=== PATIENT | female | born 1980 | race American Indian/Alaskan Native ===

== ENCOUNTER 2021-02-04 14:49 | Emergency (ER) | payer OTHER ==
[2021-02-04 15:06] VITALS: BP 126/70
[2021-02-04 15:25] LABS: Basophils # (Auto) 0.1 K/mm3 (0.0-0.1); Basophils % (Auto) 0.9 % (0.0-1.8); Eosinophils # (Auto) 0.3 K/mm3 (0.0-0.4); Eosinophils % (Auto) 4.1 % (0.0-4.3); Hematocrit 38.2 % (30.3-42.9); Hemoglobin 12.7 gm/dl (10.1-14.3); Lymphocytes # (Auto) 2.3 K/mm3 (1.2-5.4); Lymphocytes % (Auto) 31.7 % (13.4-35.0); Mean Corpuscular HGB Conc 33 % (30-34); Mean Corpuscular Volume 84 fl (79-97); Monocytes # (Auto) 0.6 K/mm3 (0.0-0.8); Platelet Count 239 K/mm3 (140-440); Red Blood Count 4.56 M/mm3 (3.65-5.03)
[2021-02-04 15:52] LABS: Alanine Aminotransferase 14 units/L (7-56); BUN/Creatinine Ratio 8; Blood Urea Nitrogen 6 mg/dL (7-17); Calcium 8.8 mg/dL (8.4-10.2); Hemolysis Index 24
[2021-02-04 15:56] LABS: Bacteria,Urine 2+ /HPF (Negative); Bilirubin,Urine NEG (Negative); Blood,Urine SM (Negative); Color,Urine Yellow (Yellow); Mucus,Urine FEW /HPF; Protein,Urine <15 mg/dL mg/dL (Negative); Urobilinogen,Urine < 2.0 mg/dL (<2.0)
--- NOTE | 2021-02-04 18:04 | Emergency Department Report ---
ED HPI - General Chief complaint: Vaginal Bleeding Stated complaint: CRAMPING/BLEEDING/ 9 WKS Time Seen by Provider: 02/04/21 15:33 Source: patient Mode of arrival: Ambulatory Limitations: No Limitations - History of Present Illness Initial comments: Patient is a 40-year-old female presents emergency room with complaints of vaginal spotting that began today. She states that the spotting is light. She denies any heavy bleeding or passing clots. She states that she also has some mild lower abdominal cramping. Patient reports that she is currently approximately 9 weeks . She states that she has a [employer] in [place]. She states that she has not yet had an ultrasound. Patient reports that she has an appointment with her [employer] next week. She denies any fever, nausea, vomiting, diarrhea, abnormal vaginal discharge, urinary symptoms. Last menstrual cycle 11/29/2020. /P: 3/A: 4. No past medical history. No sujey rgies medications. - Related Data Allergies Allergy/AdvReac Type Severity Reaction Status Date / Time No Known Allergies Allergy Verified 02/04/21 18:31 ED Review of Systems ROS: Stated complaint: CRAMPING/BLEEDING/ 9 WKS Other details as noted in HPI Comment: All other systems reviewed and negative ED Past Medical Hx - Past Medical History Hx Arthritis: Yes Additional medical history: fibromyalgia - Surgical History Additional Surgical History: x3 - Social History Smoking Status: Never Smoker ED Physical Exam - General Limitations: No Limitations General appearance: alert, in no apparent distress - Head Head exam: Present: atraumatic, normocephalic - Eye Eye exam: Present: normal appearance - ENT ENT exam: Present: mucous membranes moist - Respiratory Respiratory exam: Present: normal lung sounds bilaterally. Absent: respiratory distress, wheezes, rales, rhonchi, stridor, chest wall tenderness, accessory muscle use, decreased breath sounds, prolonged expiratory - Cardiovascular Cardiovascular Exam: Present: regular rate, normal rhythm, normal heart sounds. Absent: systolic murmur, diastolic murmur, rubs, gallop - Neurological Exam Neurological exam: Present: alert, oriented X3 - Psychiatric Psychiatric exam: Present: normal affect, normal mood - Skin Skin exam: Present: warm, dry, intact ED Course Vital Signs 02/04/21 14:55 Temperature 98.5 F Pulse Rate 89 Respiratory 16 Rate Blood Pressure 126/70 O2 Sat by Pulse 99 Oximetry ED Medical Decision Making - Lab Data Result diagrams: 02/04/21 15:13 02/04/21 15:13 Lab Results 02/04/21 02/04/21 02/04/21 Range/Units 15:13 15:13 15:13 WBC 7.4 (4.5-11.0) K/mm3 RBC 4.56 (3.65-5.03) M/mm3 Hgb 12.7 (10.1-14.3) gm/dl Hct 38.2 (30.3-42.9) % MCV 84 (79-97) fl MCH 28 (28-32) pg MCHC 33 (30-34) % RDW 14.0 (13.2-15.2) % Plt Count 239 (140-440) K/mm3 Lymph % (Auto) 31.7 (13.4-35.0) % [place] % (Auto) 8.0 H (0.0-7.3) % Eos % (Auto) 4.1 (0.0-4.3) % Baso % (Auto) 0.9 (0.0-1.8) % Lymph # (Auto) 2.3 (1.2-5.4) K/mm3 [place] # (Auto) 0.6 (0.0-0.8) K/mm3 Eos # (Auto) 0.3 (0.0-0.4) K/mm3 Baso # (Auto) 0.1 (0.0-0.1) K/mm3 Seg Neutrophils % 55.3 (40.0-70.0) % Seg Neutrophils # 4.1 (1.8-7.7) K/mm3 Sodium 135 L (137-145) mmol/L Potassium 3.6 (3.6-5.0) mmol/L Chloride 99.9 (98-107) mmol/L Carbon Dioxide 24 (22-30) mmol/L Anion Gap 15 mmol/L BUN 6 L (7-17) mg/dL Creatinine 0.8 (0.6-1.2) mg/dL Estimated GFR > 60 ml/min BUN/Creatinine Ratio 8 % Glucose 85 (65-100) mg/dL Calcium 8.8 (8.4-10.2) mg/dL Total Bilirubin < 0.20 (0.1-1.2) mg/dL AST 13 (5-40) units/L ALT 14 (7-56) units/L Alkaline Phosphatase 55 (35-129) units/L Total Protein 7.1 (6.3-8.2) g/dL Albumin 4.0 (3.9-5) g/dL Albumin/Globulin Ratio 1.3 % HCG, Quant [id number] H (0-4) mIU/mL Urine Color (Yellow) Urine Turbidity (Clear) Urine pH (5.0-7.0) Ur Specific [place] (1.003-1.030) Urine Protein (Negative) mg/dL Urine Glucose (UA) (Negative) mg/dL Urine Ketones (Negative) mg/dL Urine Blood (Negative) Urine Nitrite (Negative) Urine Bilirubin (Negative) Urine Urobilinogen (<2.0) mg/dL Ur Leukocyte Esterase (Negative) Urine WBC (Auto) (0.0-6.0) /HPF Urine RBC (Auto) (0.0-6.0) /HPF U Epithel Cells (Auto) (0-13.0) /HPF Urine Bacteria (Auto) (Negative) /HPF Urine Mucus /HPF Blood Type Antibody Screen 02/04/21 02/04/21 Range/Units 15:13 15:27 WBC (4.5-11.0) K/mm3 RBC (3.65-5.03) M/mm3 Hgb (10.1-14.3) gm/dl Hct (30.3-42.9) % MCV (79-97) fl MCH (28-32) pg MCHC (30-34) % RDW (13.2-15.2) % Plt Count (140-440) K/mm3 Lymph % (Auto) (13.4-35.0) % [place] % (Auto) (0.0-7.3) % Eos % (Auto) (0.0-4.3) % Baso % (Auto) (0.0-1.8) % Lymph # (Auto) (1.2-5.4) K/mm3 [place] # (Auto) (0.0-0.8) K/mm3 Eos # (Auto) (0.0-0.4) K/mm3 Baso # (Auto) (0.0-0.1) K/mm3 Seg Neutrophils % (40.0-70.0) % Seg Neutrophils # (1.8-7.7) K/mm3 Sodium (137-145) mmol/L Potassium (3.6-5.0) mmol/L Chloride (98-107) mmol/L Carbon Dioxide (22-30) mmol/L Anion Gap mmol/L BUN (7-17) mg/dL Creatinine (0.6-1.2) mg/dL Estimated GFR ml/min BUN/Creatinine Ratio % Glucose (65-100) mg/dL Calcium (8.4-10.2) mg/dL Total Bilirubin (0.1-1.2) mg/dL AST (5-40) units/L ALT (7-56) units/L Alkaline Phosphatase (35-129) units/L Total Protein (6.3-8.2) g/dL Albumin (3.9-5) g/dL Albumin/Globulin Ratio % HCG, Quant (0-4) mIU/mL Urine Color Yellow (Yellow) Urine Turbidity Slightly-cloudy (Clear) Urine pH 6.0 (5.0-7.0) Ur Specific [place] 1.024 (1.003-1.030) Urine Protein <15 mg/dl (Negative) mg/dL Urine Glucose (UA) Neg (Negative) mg/dL Urine Ketones Neg (Negative) mg/dL Urine Blood Sm (Negative) Urine Nitrite Neg (Negative) Urine Bilirubin Neg (Negative) Urine Urobilinogen < 2.0 (<2.0) mg/dL Ur Leukocyte Esterase Neg (Negative) Urine WBC (Auto) 7.0 H (0.0-6.0) /HPF Urine RBC (Auto) 39.0 (0.0-6.0) /HPF U Epithel Cells (Auto) 5.0 (0-13.0) /HPF Urine Bacteria (Auto) 2+ (Negative) /HPF Urine Mucus Few /HPF Blood Type A NEGATIVE Antibody Screen Negative - Radiology Data Radiology results: report reviewed Ordering Physician: RANDY GREY Date of Service: 02/04/21 Procedure(s): US OB transvaginal Accession Number(s): [id number] cc: RANDY GREY ULTRASOUND OBSTETRIC Indication: , cramping, spotting Findings: There is a single, living intrauterine . [place]-rump length = 1.0 cm = 7 weeks, 0 day(s). heart rate is 0 beats per minute. The ovaries are normal. There is no free fluid. Impression: Intrauterine with estimated sonographic age of 7 weeks, 0 day(s) however no heart tones were identified.. Close sonographic follow-up is suggested Signer Name: Burton Odell MD Signed: 02/04/2021 6:09 PM Workstation Name: [id number] Transcribed By: MCKENNA Dictated By: Burton Odell MD Electronically Authenticated By: Burton Odlel MD Signed Date/Time: 02/04/211808 DD/ 06 TD/TT: - Medical Decision Making Patient is a 40-year-old female presents emergency room with complaints of vaginal spotting that began today. She states that the spotting is light. She denies any heavy bleeding or passing clots. She states that she also has some mild lower abdominal cramping. Patient reports that she is currently approximately 9 weeks . She states that she has a [employer] in [place]. She states that she has not yet had an ultrasound. Patient reports that she has an appointment with her [employer] next week. She denies any fever, nausea, vomiting, diarrhea, abnormal vaginal discharge, urinary symptoms. Last menstrual cycle 11/29/2020. /P: 3/A: 4. No past medical history. No allergies medications. Vitals are normal. No abdominal tenderness on exam, no guarding, no rebound, no rigidity, normal bowel sounds, no peritoneal signs. hCG quant is [id number]. Patient is Rh-, given RhoGam in the ED. UA does not appear consistent with UTI, patient is not having urinary symptoms. OB ultrasound: Intrauterine with estimated sonographic age of 7 weeks, 0 day(s) however no heart tones were identified.. Close sonographic follow-up is suggested . Discussed results with the patient and the importance of close [employer] follow-up to have repeat hCG quant and ultrasound. Patient states that she has an upcoming ultrasound scheduled with her [employer]. Advised patient Please follow-up with your [employer], you need to have a repeat ultrasound and hCG quant. Today 02/04/2021 [place] [id number]. Return to emergency room for new or worsening symptoms. Critical care attestation.: If time is entered above; I have spent that time in minutes in the direct care of this critically ill patient, excluding procedure time. ED Disposition Clinical Impression: Threatened miscarriage Disposition: DC- TO HOME OR SELFCARE Is pt being admited?: No Does the pt Need Aspirin: No Condition: Stable Instructions: Threatened Miscarriage Additional Instructions: Please follow-up with your [employer], you need to have a repeat ultrasound and hCG quant. Today 02/04/2021 [place] [id number]. Return to emergency room for new or worsening symptoms. Referrals: your, certified professional ergonomist [Other] - 2-3 Days Time of Disposition: 18:19 Print Language: GREEK
--- NOTE | 2021-02-04 18:14 | Ultrasound Report ---
ULTRASOUND OBSTETRIC Indication: , cramping, spotting Findings: There is a single, living intrauterine . [place]-rump length = 1.0 cm = 7 weeks, 0 day(s). heart rate is 0 beats per minute. The ovaries are normal. There is no free fluid. Impression: Intrauterine with estimated sonographic age of 7 weeks, 0 day(s) however no heart ton es were identified.. Close sonographic follow-up is suggested Signer Name: Burton Odell MD Signed: 02/04/2021 6:09 PM Workstation Name: [id number]
--- NOTE | 2021-02-04 18:14 | Ultrasound Report ---
ULTRASOUND OBSTETRIC Indication: , cramping, spotting Findings: There is a single, living intrauterine . [place]-rump length = 1.0 cm = 7 weeks, 0 day(s). heart rate is 0 beats per minute. The ovaries are normal. There is no free fluid. Impression: Intrauterine with estimated sonographic age of 7 weeks, 0 day(s) however no heart ton es were identified.. Close sonographic follow-up is suggested Signer Name: Burton Odell MD Signed: 02/04/2021 6:09 PM Workstation Name: [id number]
[2021-02-04] MEDS ORDERED: ACETAMINOPHEN 325 MG TAB PO ONE (19:00)
== END 2021-02-04 19:13 | disposition home or self-care (01) ==
LOC: ED 14:49
DX: O20.0 Threatened abortion (principal); Z3A.09 9 weeks gestation of pregnancy; Z98.890 Other specified postprocedural states
CPT/HCPCS: 36415; 36430; 76801; 76817; 80053; 81001; 84702; 85025; 86850; 86900; 86901; 99284; J2790